=== PATIENT | female | born 1995 | race Caucasian/White ===

== ENCOUNTER 2017-01-25 00:28 | Emergency (ER) | payer MEDICAID ==
[2014-08-22 17:24] VITALS: BMI 29.2
[~2017-01-25 00:28] MED LIST: HYDROCODONE-APA1 TAB PO; IBUPROFEN600 MG PO; PRENAVITE1 TAB PO
== END 2017-01-25 02:03 | disposition home or self-care (01) ==
LOC: D.ER 00:28
DX: S82.401A Unspecified fracture of shaft of right fibula, initial encounter for closed fracture (principal); W19.XXXA Unspecified fall, initial encounter; Y93.89 Activity, other specified; Y92.89 Other specified places as the place of occurrence of the external cause

== ENCOUNTER 2017-12-13 06:34 | Emergency (ER) | payer OTHER ==
[2014-08-22 17:24] VITALS: BMI 29.2
== END 2017-12-13 07:21 | disposition home or self-care (01) ==
LOC: D.ER 06:34
DX: S80.11XA Contusion of right lower leg, initial encounter (principal); W19.XXXA Unspecified fall, initial encounter; Y93.89 Activity, other specified; Y92.89 Other specified places as the place of occurrence of the external cause; S80.812A Abrasion, left lower leg, initial encounter

== ENCOUNTER 2019-01-26 22:15 | Emergency (ER) | payer MEDICAID ==
[~2019-01-26] VITALS: Ht 162.6 cm; Wt 68.2 kg
[2019-01-26 22:17] VITALS: BP 127/80; Ht 162.6 cm; Wt 68.2 kg
[2019-01-26] MEDS ORDERED: POLYSPORIN OINT15 G1 TOPICAL (22:37)
== END 2019-01-26 22:50 | disposition home or self-care (01) ==
LOC: D.ER 22:15
DX: T23.111A Burn of first degree of right thumb (nail), initial encounter (principal)

== ENCOUNTER → 2020-01-15 10:01 | Outpatient (CLI) | payer MEDICAID ==
[2019-01-26 22:17] VITALS: BMI 25.8
[~2020-01-15 10:01] MED LIST changes: +POLYSPORIN OINT15 G1 TOPICAL
== END | disposition home or self-care (01) ==
LOC: D.RAD 10:01
PROVIDERS: ATTEND Nurse Practitioner
DX: R05 Cough (principal)